=== PATIENT | female | born 1945 | race Caucasian/White ===

== ENCOUNTER 2018-11-26 14:56 | Inpatient (IN) | payer MEDICARE ==
[~2018-11-26 14:56] MED LIST: ISOVUE-370 76%-LOCM 1 ML ONE
[2018-11-26] MEDS ORDERED: Albuterol Sulfate 2.5 mg/0.5 ml Neb ONE ×4 (15:18→16:51)
[2018-11-26 15:24] LABS: #Eosinphils 0.1 thou/uL (0.0-0.7); #Lymphocytes 0.9 thou/uL (1.20-3.40); #Monocytes 0.9 thou/uL (0.11-0.59); #Neutrophils 6.9 thou/uL (1.40-6.50); %Basophils 0.2 % (0.0-1.0); %Eosinophils 1.2 % (0.0-10.0); %Lymphocytes 10.4 % (21.0-51.0); %Monocytes 10.2 % (0.0-10.0); %Neutrophils 78.1 % (42.0-75.0); Hemoglobin 14.3 g/dL (12.0-16.0); Mean Corpuscular HGB CONC 31.8 g/dL (32.0-36.0); Mean Corpuscular Volume 97.4 fL (78.0-98.0); Mean Platelet Volume 6.3 fL (7.4-10.4); Platelet Count 307 thou/uL (130-400); RBC Distribution Width 12.5 % (11.5-14.5); Red Blood Cell (RBC) Count 4.62 mill/uL (4.20-5.40); White Blood Cell (WBC) Count 8.9 thou/uL (4.8-10.8)
[2018-11-26] MEDS ORDERED: methylPREDNISolone Sod Succ/PF 125 MG/2 ML VIAL ONE (15:25)
[2018-11-26] MEDS ORDERED: Magnesium 2 GM/50 ML BAG (IN WATER) ONE (15:25)
[2018-11-26] MEDS ORDERED: cefTRIAXone\\ROCEPHIN 1 GM VIAL ONE (15:25)
--- NOTE | 2018-11-26 15:42 | RAD ---
CHEST 1 VIEW: HISTORY: Cough. COMPARISON: 08/29/2015. FINDINGS: Cardiac silhouette is magnified by projection. Pulmonary vasculature is upper limits of normal. Cecilia gs remain hyperinflated. Calcified granulomata are consistent with healed granulomatous disease. No lobar consolidation or evidence of pneumothorax. Postoperative changes right shoulder. IMPRESSION: Pulmonary hyperinflation and other chronic-type findings appear stable. No active cardiopulmonary ab normalities are demonstrated. POS: [facility]
[2018-11-26 15:46] LABS: ALT (SGPT) 13 U/L (8-55); AST (SGOT) 13 U/L (5-34); Albumin 3.9 g/dL (3.4-4.8); Alkaline Phosphatase 70 U/L (40-150); Anion Gap 15 mmol/L (10-20); BUN (Urea Nitrogen) 7 mg/dL (9.8-20.1); Bilirubin, Total 0.2 mg/dL (0.2-1.2); Calc. Creatinine Clearance 0 mL/min (70-130); Calcium 8.8 mg/dL (7.8-10.44); Carbon Dioxide 21 mmol/L (23-31); Chloride 107 mmol/L (98-107); Estimated GFR-MDRD 64; Globulin 3.2 g/dL (2.4-3.5); Glucose 189 mg/dL (83-110); Potassium 3.8 mmol/L (3.5-5.1); Protein, Total 7.1 g/dL (6.0-8.3); Sodium 139 mmol/L (136-145)
--- NOTE | 2018-11-26 16:39 | CT ---
CT ARTERIOGRAM CHEST WITH IV CONTRAST AND 3D MIP IMAGIN11/26/18 HISTORY: Chest pain. Dyspnea. Cough. FINDINGS: There is good contrast opacification of the pulmonary arteries and thoracic aorta with normal branchi ng of the great vessels. Lungs are well inflated. Densely calcified granuloma is present within the l ingula of the left upper lobe. No pleural fluid, pneumothorax or mediastinal adenopathy. Scattered no nspecific lymph nodes are apparent. IMPRESSION: No CT evidence of pulmonary embolus. POS: [facility]
[2018-11-26 17:17] LABS: Bilirubin Negative (Negative); Blood, Urine Negative (Negative); Clarity CLEAR (Clear); Glucose, Urine (Dipstick) Negative (Negative); Leukocyte Negative (Negative); Nitrite Negative (Negative); Protein, Urine (Dipstick) Negative (Neg-Trace); Urobilinogen 0.2 mg/dL (0.2-1.0)
[2018-11-26] MEDS ORDERED: Lorazepam 2 MG/ML VIAL ONE (17:46)
[2018-11-26 18:42] LABS: Troponin I 0.062 ng/mL (< 0.028)
[2018-11-26] MEDS ORDERED: Ondansetron ODT 4 MG TAB SL PRN (19:36)
[2018-11-26] MEDS ORDERED: Acetaminophen 325 MG TAB PO PRN (19:36)
[2018-11-26] MEDS ORDERED: Ondansetron PF 4 MG/2 ML Vial IVP PRN (19:36)
[2018-11-26 20:01] VITALS: BMI 24.7
[2018-11-26 21:36] LABS: Troponin I 0.097 ng/mL (< 0.028)
--- NOTE | 2018-11-27 00:24 | HP ---
PRIMARY CARE PHYSICIAN: Dallas Galdamez MD. CHIEF COMPLAINT: Shortness of breath. HISTORY OF PRESENT ILLNESS: This is a 73-year-old white female with a known history of COPD along with mild diastolic congestive heart failure. She has not had too many problems with it until her in March of last year. She is now on 2.5 L of oxygen at home. At that time, she started smoking after having quit for quite sometime. She has had worsened breathing problems since then and then over the last week she has had significant cough, wheezing, and shortness of breath. She went to see Dr. Galdamez about a week ago, took a course of azithromycin and steroids, finished those yesterday, but for the last 2 days she has had severe worsening of her symptoms in spite of the medicines and so she came in to the hospital today. The patient was found to be in severe respiratory distress. She was placed on BiPAP, given nebulizer treatments. She already had a couple of nebulizers at home as well. She initially had some significant improvement in her shortness of breath, has started to get worse again just now. She has also had some sinus tachycardia since now, up in the 150s and a lot of anxiety with a BiPAP mask on over her, currently giving her Ativan to see if we can help her calm down. She is oxygenating well now on the BiPAP mask. PAST MEDICAL HISTORY: 1. COPD, on home oxygen 2.5 L at baseline. 2. Diastolic congestive heart failure, never with any significant exacerbation. 3. Hypertension. 4. Hyperlipidemia. 5. Chronic back pain. 6. Hyponatremia, previously on hydrochlorothiazide. 7. Left lower extremity clot a few years ago that resolved on its own, not on any blood thinners. PAST SURGICAL HISTORY: 1. Appendectomy. 2. Cholecystectomy. 3. Hysterectomy. 4. Right hand surgery. SOCIAL HISTORY: The patient is . She is currently smoking one pack per day. No alcohol or illicit drug use. She lives at home with her daughter and son-in-law. Her daughter, Lupe Borrego, is her medical power of city attorney. ALLERGIES: NO KNOWN DRUG ALLERGIES. CURRENT MEDICATIONS: 1. Metoprolol succinate 25 mg twice a day. 2. Isosorbide mononitrate 30 mg daily. 3. Oxybutynin 5 mg twice a day. 4. Potassium chloride 20 mEq daily. 5. Lisinopril 10 mg daily. 6. Furosemide 40 mg daily. 7. Pravastatin 80 mg daily. REVIEW OF SYSTEMS: CONSTITUTIONAL: No fevers, no chills. EYES: No double vision or blurred vision. ENT: She has had some congestion. No sore throat. CARDIOVASCULAR: No chest pain. No palpitations or racing heart. PULMONARY: See HPI. Cough is productive of minimal white sputum. GASTROINTESTINAL: No abdominal pain. No nausea or vomiting. No diarrhea or constipation. GENITOURINARY: No dysuria or hematuria. MUSCULOSKELETAL: No muscle aches or joint pain. SKIN: No rashes or lesions she has noted. NEUROLOGIC: No numbness, tingling, or focal weakness. PHYSICAL EXAMINATION: VITAL SIGNS: Blood pressure 138/91, pulse 150, respirations 20 on BiPAP, saturating 100%, and temperature 99.5. GENERAL: This is a well-developed, well-nourished white female, who appears her stated age. She was in [id number] respiratory distress, on BiPAP currently. HEENT: Pupils equal, round, and reactive to light. Oropharynx appears dry underneath the BiPAP mask. NECK: Supple. No lymphadenopathy. No thyroid nodules or enlargement. HEART: Regular rhythm, but tachycardic with no murmurs. LUNGS: She has wheezes and tight breath sounds bilaterally. ABDOMEN: Soft, obese, nontender to palpation. Normoactive bowel sounds. No hepatosplenomegaly or other masses. EXTREMITIES: No clubbing, cyanosis, or edema. SKIN: No rashes or lesions noted. NEUROLOGIC: She has intact strength and sensation in all extremities. No facial droop. PSYCHIATRIC: She is alert and oriented x3. She is very anxious, so she feels like the mask is making it hard for her to breathe. Currently giving her 1 mg of Ativan. LABORATORY DATA: CBC within normal limits. Complete metabolic panel is notable only for carbon dioxide of 21, BUN of 7, and glucose of 189. Lactic acid was normal. Troponin was normal. Urinalysis was negative for infection. Chest x-ray, I did review the chest x-ray done in the emergency room along with the radiologist's report. It shows pulmonary hyperinflation, chronic changes with no infiltrates, no cardiomegaly. CTA of the chest shows no evidence of pulmonary embolism. No evidence of pneumonia or congestion. EKG, I did review the EKG done in the emergency room. It shows sinus tachycardia originally in the 130s, no ST-segment changes. ASSESSMENT: 1. Severe chronic obstructive pulmonary disease exacerbation; currently on BiPAP; getting nebs, steroids, and antibiotics; received Levaquin and Rocephin in the emergency room. We can continue the Levaquin in the hospital. We will put patient in the IMCU and consult Pulmonology to assist with care. If patient declines further then she may eventually end up needing intubation, though at this time she is doing okay. I did talk to her about this and she is okay with intubation if it is needed. 2. Acute on chronic hypoxic respiratory failure. 3. Diastolic congestive heart failure, not currently in exacerbation. She actually appeared dry when she came in, then she got 2 L of fluid in the emergency room. This did not help her tachycardia, so I suspect it is not due to volume depletion. We will monitor her fluid status closely. 4. Sinus tachycardia. The patient does not have a PE or any evidence of pneumonia. This is most likely related to anxiety and from difficulty breathing. We will give her some Ativan and see if she tolerates the BiPAP mask better with that. 5. Hypertension. We will resume patient's home blood pressure medications. 6. Hyperlipidemia. We will resume the patient's statin. 7. Gastrointestinal prophylaxis. We will put the patient on Pepcid twice a day. 8. Deep venous thrombosis prophylaxis. We will put the patient on Lovenox and SCDs. 9. Code status. I discussed this with the patient. She is a full code. Should she be incapacitated, her daughter would be her medical decision maker. Her daughter's name is Lupe Borrego. Job ID: [id number]
[2018-11-27] MEDS ORDERED: hydrALAZINE 20 MG/ML VIAL SLOW IVP PRN (01:05)
[2018-11-27] MEDS ORDERED: Lorazepam 2 MG/ML VIAL SLOW IVP PRN (01:05)
[2018-11-27] MEDS ORDERED: Ondansetron ODT 4 MG TAB PO PRN (01:05)
[2018-11-27] MEDS ORDERED: cloNIDine 0.1 MG TAB PO PRN (01:05)
[2018-11-27] MEDS ORDERED: Ondansetron PF 4 MG/2 ML Vial IVP PRN (01:05)
[2018-11-27] MEDS ORDERED: Acetaminophen 650 MG Suppository PR PRN (01:05)
[2018-11-27] MEDS ORDERED: Acetaminophen 325 MG TAB PO PRN (01:05)
[2018-11-27] MEDS ORDERED: Famotidine 20 MG TAB PO SCH (01:30)
[2018-11-27] MEDS ORDERED: Metoprolol Tartrate 25 MG TAB PO SCH (01:30)
[2018-11-27] MEDS ORDERED: Atorvastatin Calcium 20 MG TAB PO SCH (01:30)
[2018-11-27] MEDS: methylPREDNISolone Sod Succ 40 MG VIAL IVP SCH ×4 (01:55→21:22)
[2018-11-27 05:05] LABS: #Lymphocytes 0.5 thou/uL (1.20-3.40); #Monocytes 0.1 thou/uL (0.11-0.59); #Neutrophils 4.2 thou/uL (1.40-6.50); %Eosinophils 0.4 % (0.0-10.0); %Lymphocytes 10.6 % (21.0-51.0); %Monocytes 2.9 % (0.0-10.0); Hemoglobin 12.7 g/dL (12.0-16.0); Mean Corpuscular HGB CONC 32.1 g/dL (32.0-36.0); Mean Corpuscular Hemoglobin 31.5 pg (27.0-31.0); Mean Corpuscular Volume 98.1 fL (78.0-98.0); Mean Platelet Volume 6.3 fL (7.4-10.4); Platelet Count 275 thou/uL (130-400); RBC Distribution Width 12.4 % (11.5-14.5); Red Blood Cell (RBC) Count 4.01 mill/uL (4.20-5.40); White Blood Cell (WBC) Count 4.9 thou/uL (4.8-10.8)
[2018-11-27 05:24] LABS: Anion Gap 12 mmol/L (10-20); BUN (Urea Nitrogen) 7 mg/dL (9.8-20.1); Calc. Creatinine Clearance 67 mL/min (70-130); Calcium 8.2 mg/dL (7.8-10.44); Carbon Dioxide 22 mmol/L (23-31); Chloride 110 mmol/L (98-107); Estimated GFR-MDRD 74; Glucose 156 mg/dL (83-110); Potassium 4.5 mmol/L (3.5-5.1); Sodium 139 mmol/L (136-145)
[2018-11-27] MEDS: Metoprolol Tartrate 25 MG TAB PO SCH ×2 (09:04→21:23)
[2018-11-27] MEDS: Furosemide 40 MG TAB PO SCH (09:04)
[2018-11-27] MEDS: Potassium Chloride 20 MEQ TAB PO SCH (09:04)
[2018-11-27] MEDS: Famotidine 20 MG TAB PO SCH ×2 (09:04→21:23)
[2018-11-27] MEDS: Lisinopril 10 MG TAB PO SCH (09:05)
[2018-11-27] MEDS: Enoxaparin Sodium 40 MG/0.4 ML SYRINGE SC SCH (09:05)
--- NOTE | 2018-11-27 11:33 | CON ---
DATE OF CONSULTATION: CONSULTING PHYSICIAN: Hospitalist group. REASON FOR CONSULTATION: COPD exacerbation. HISTORY OF PRESENT ILLNESS: The patient is a 73-year-old female, who presented to the hospital with 3 to 4 days of increasing cough and shortness of breath. She had seen her primary care doctor twice and prescribed some antibiotics and steroids, but failed to get better. When she came in yesterday, she was so short of breath that she had to have BiPAP put on, which she wore last night. Today, she feels much better. She has been able to come off the BiPAP this morning without incident. PAST MEDICAL HISTORY: 1. COPD, requiring oxygen. 2. Diastolic congestive heart failure. 3. Hypertension. 4. Hyperlipidemia. 5. Chronic back pain. 6. Hyponatremia. 7. Left lower extremity clot. PAST SURGICAL HISTORY: 1. Appendectomy. 2. Cholecystectomy. 3. Hysterectomy. 4. Right hand surgery. SOCIAL HISTORY: She is a one [id number] smoker. She has smoked essentially since age 22, but did quit for about a year in early 70s. She does not consume alcohol. She lives with daughter. She is . She is able to perform all of her activities of daily living when she is feeling well. ALLERGIES: NONE. MEDICATIONS: Prior to admission; 1. Metoprolol 25 mg twice daily. 2. Isosorbide mononitrate 30 mg daily. 3. Oxybutynin 5 mg twice daily. 4. Potassium chloride 20 mEq daily. 5. Lisinopril 10 mg daily. 6. Furosemide 40 mg daily. 7. Pravastatin 80 mg daily. 8. ProAir metered-dose inhaler two puffs every 6 hours as needed. 9. Albuterol nebs as needed. 10. She occasionally uses Symbicort. REVIEW OF SYSTEMS: She denies fever or chills. She has had a cough. No chest pain. No hemoptysis, melena, hematochezia, hematuria, or dysuria. PHYSICAL EXAMINATION: VITAL SIGNS: Temperature 98.0, pulse 78, respirations 16, O2 saturation 100%, and blood pressure 129/71. GENERAL: She is awake, alert, and in no acute distress. HEENT: Pupils are reactive. Sclerae anicteric. Oropharynx clear. NECK: No adenopathy, JVD, or bruits. LUNGS: She has late expiratory wheezes best heard at the bases posteriorly. CARDIOVASCULAR: S1 and S2 regular without audible murmur. ABDOMEN: Soft, nontender, and nondistended. No hepatomegaly. EXTREMITIES: No clubbing, cyanosis, or edema. NEUROLOGIC: Shows no focal deficits. SKIN: Shows no lesions. LABORATORY DATA: White blood cell count 4.9, hematocrit 39.4, and platelet count 275. Sodium 139, potassium 4.5, chloride 110, CO2 of 22, BUN 7, creatinine 0.7, glucose 156. Her chest x-ray shows hyperinflated lungs, prominent alise. Pulmonary angiogram demonstrated no evidence of pulmonary embolism. No evidence of mass. She has calcified granuloma in the lingula. ASSESSMENT: 1. Chronic obstructive pulmonary disease exacerbation. 2. Acute hypoxic and hypercapnic respiratory failure, requiring mechanical ventilation. 3. Tobacco abuse. PLAN: The patient has been weaned from mechanical ventilation. Hopefully, she will not need that again. I have reviewed the orders and agreed with steroids. Scheduled nebulization treatments and antibiotics. If she is able to stay off the BiPAP, then she could be transferred to the medical floor later this afternoon. She has been told to stop smoking. She is currently immunized against influenza and pneumonia. I am not sure whether she has had Pneumovax and Prevnar 13. Job ID: [id number]
[2018-11-27] MEDS ORDERED: Cyclobenzaprine 10 MG TAB PO PRN (14:07)
[2018-11-27] MEDS: Acetaminophen 325 MG TAB PO SCH ×2 (16:50→21:22)
[2018-11-27] MEDS: Benzonatate 100 MG CAP PO PRN (16:56)
[2018-11-27] MEDS: guaiFENesin ER 600 MG TAB PO SCH (21:23)
[2018-11-27] MEDS: Atorvastatin Calcium 20 MG TAB PO SCH (21:23)
--- NOTE | 2018-11-27 23:00 | PDOC.PN ---
- Subjective Encounter Start Date: 11/27/18 Encounter Start Time: 10:30 Patient seen and examined for Resp failure. SOB improvng. Intractable coughing. No new complaints. No overnight events - Objective Resuscitation Status - Order Detail: 11/26/18 17:55 Resuscitation Status Routine Resuscitation Status: FULL: Full Resuscitation Discussed with: Patient MAR Reviewed: Yes Vital Signs & Weight: Vital Signs (12 hours) Temp Pulse Pulse Pulse Resp BP BP 11/27/18 20:30 11/27/18 20:00 98.1 F 11/27/18 18:53 112 H 24 H 11/27/18 15:25 99.4 F 11/27/18 14:22 109 H 101 H 106/56 L 106/71 11/27/18 13:12 11/27/18 13:10 94 16 11/27/18 11:49 98.8 F Pulse Ox Pulse Ox Pulse Ox 11/27/18 20:30 98 11/27/18 20:00 11/27/18 18:53 98 11/27/18 15:25 11/27/18 14:22 99 96 11/27/18 13:12 99 11/27/18 13:10 99 11/27/18 11:49 Weight Weight 140 lb Most Recent Monitor Data Heart Rate from ECG 96 NIBP 118/77 NIBP BP-Mean 90 Respiration from ECG 26 SpO2 98 I&O: 11/26/18 11/27/18 11/28/18 06:59 06:59 06:59 Intake Total 110 480 Balance 110 480 Result Diagrams: 11/27/18 04:46 11/27/18 04:46 EKG Reviewed by me: Yes (Tele SR) Phys Exam - Physical Examination Constitutional: NAD Respiratory: no rales, wheezing present (scat) B/L rhonchi Cardiovascular: RRR, no rub Gastrointestinal: soft, non-tender, positive bowel sounds Musculoskeletal: no edema Neurological: moves all 4 limbs Dx/Plan (1) Acute and chronic respiratory failure with hypoxia Code(s): J96.21 - ACUTE AND CHRONIC RESPIRATORY FAILURE WITH HYPOXIA Status: Acute Comment: due to COPD Exacerbation (2) Tobacco dependence Code(s): F17.200 - NICOTINE DEPENDENCE, UNSPECIFIED, UNCOMPLICATED Status: Chronic (3) HTN (hypertension) Code(s): I10 - ESSENTIAL (PRIMARY) HYPERTENSION Status: Chronic (4) HLD (hyperlipidemia) Code(s): E78.5 - HYPERLIPIDEMIA, UNSPECIFIED Status: Chronic (5) Elevated troponin Code(s): R74.8 - ABNORMAL LEVELS OF OTHER SERUM ENZYMES Status: Chronic (6) CKD (chronic kidney disease) stage 2, GFR 60-89 ml/min Code(s): N18.2 - CHRONIC KIDNEY DISEASE, STAGE 2 (MILD) Status: Chronic - Plan cont current plan of care, continue antibiotics, DVT proph w/SCDs Cont steroids/Nebs -: Add Mucinex -: AM labs -: Cont current meds as below -: BMP in AM Review of Systems - Review of Systems Respiratory: Cough, Sputum (thick - scanty) Cardiovascular: negative: chest pain, palpitations, orthopnea, paroxysmal nocturnal dyspnea, edema, light headedness, other - Medications/Allergies Allergies/Adverse Reactions: Allergies Allergy/AdvReac Type Severity Reaction Status Date / Time No Known Drug Allergies Allergy Verified 11/26/18 20:02 Medications: Current Medications Acetaminophen (Tylenol) 650 mg TN Q4H PRN PRN Reason: Headache/Fever/Mild Pain (1-3) Acetaminophen (Tylenol) 650 mg PO TID [facility] Last Admin: 11/27/18 21:22 Dose: 650 mg Albuterol/Ipratropium (Duoneb) 3 ml NEB [id number] [facility] Last Admin: 11/27/18 18:53 Dose: 3 ml Albuterol/Ipratropium (Duoneb) 3 ml NEB Q0OB-BT PRN PRN Reason: SOB &/or Wheezing Atorvastatin Calcium (Lipitor) 20 mg PO HS [facility] Last Admin: 11/27/18 21:23 Dose: 20 mg Benzonatate (Tessalon) 100 mg PO TID PRN PRN Reason: Cough Last Admin: 11/27/18 16:56 Dose: 100 mg Clonidine (Catapres) 0.1 mg PO Q4H PRN PRN Reason: Severe Hypertension Cyclobenzaprine HCl (Flexeril) 5 mg PO TID PRN PRN Reason: Muscle Spasm Stop: 11/29/18 14:08 Enoxaparin Sodium (Lovenox) 40 mg SC 0900 [facility] Last Admin: 11/27/18 09:05 Dose: 40 mg Famotidine (Pepcid) 20 mg PO BID [facility] Last Admin: 11/27/18 21:23 Dose: 20 mg Furosemide (Lasix) 40 mg PO QAM [facility] Last Admin: 11/27/18 09:04 Dose: 40 mg Guaifenesin (Mucinex) 600 mg PO Q12HR [facility] Last Admin: 11/27/18 21:23 Dose: 600 mg Hydralazine HCl (Apresoline) 10 mg SLOW IVP Q4H PRN PRN Reason: Severe Hypertension Levofloxacin 750 mg/ Device 150 mls @ 100 mls/hr IVPB Q24HR [facility] Last Admin: 11/27/18 16:49 Dose: 150 mls Isosorbide Mononitrate (Imdur Er) 30 mg PO DAILY [facility] Last Admin: 11/27/18 09:03 Dose: 30 mg Lisinopril (Zestril) 10 mg PO DAILY [facility] Last Admin: 11/27/18 09:05 Dose: 10 mg Lorazepam (Ativan) 1 mg SLOW IVP Q4H PRN PRN Reason: Anxiety/Agitation Methylprednisolone Sodium Succinate (Solu-Medrol) 40 mg IVP 0200,0800,1400, 2000 [facility] Last Admin: 11/27/18 21:22 Dose: 40 mg Metoprolol Tartrate (Lopressor) 25 mg PO BID [facility] Last Admin: 11/27/18 21:23 Dose: 25 mg Ondansetron HCl (Zofran Odt) 4 mg PO Q6H PRN PRN Reason: Nausea/Vomiting Ondansetron HCl (Zofran) 4 mg IVP Q6H PRN PRN Reason: Nausea/Vomiting Potassium Chloride (K-Dur) 20 meq PO DAILY [facility] Last Admin: 11/27/18 09:04 Dose: 20 meq Saccharomyces Boulardii (Florastor) 250 mg PO DAILY [facility] Senna/Docusate Sodium (Senokot S) 2 tab PO BID PRN PRN Reason: Constipation Sodium Chloride (Flush - Normal Saline) 10 ml IVF Q12HR [facility] Last Admin: 11/27/18 21:23 Dose: 10 ml Sodium Chloride (Flush - Normal Saline) 10 ml IVF PRN PRN PRN Reason: Saline Flush
[2018-11-28] MEDS: methylPREDNISolone Sod Succ 40 MG VIAL IVP SCH ×4 (02:51→20:31)
[2018-11-28 05:12] LABS: Anion Gap 12 mmol/L (10-20); BUN (Urea Nitrogen) 15 mg/dL (9.8-20.1); Calc. Creatinine Clearance 65 mL/min (70-130); Calcium 8.3 mg/dL (7.8-10.44); Carbon Dioxide 24 mmol/L (23-31); Chloride 108 mmol/L (98-107); Estimated GFR-MDRD 71; Glucose 139 mg/dL (83-110); Magnesium 2.2 mg/dL (1.6-2.6); Potassium 4.1 mmol/L (3.5-5.1); Sodium 140 mmol/L (136-145)
[2018-11-28] MEDS: Benzonatate 100 MG CAP PO PRN (05:26)
--- NOTE | 2018-11-28 09:00 | PRG ---
DATE OF SERVICE: 11/28/2018 SUBJECTIVE: The patient is feeling better. She has not used BiPAP last night. OBJECTIVE: VITAL SIGNS: Temperature is 98.7, pulse 77, blood pressure 127/67, O2 saturation 100%. HEENT: Unremarkable. NECK: No adenopathy or JVD. LUNGS: Expiratory wheezing. CARDIAC: S1 and S2 regular. ABDOMEN: Soft. EXTREMITIES: No edema. LABORATORY DATA: Sodium 140, potassium 4.1, chloride 108, CO2 of 24, BUN 15, creatinine 0.8, glucose 139. ASSESSMENT: Chronic obstructive pulmonary disease with exacerbation. PLAN: She no longer needs the BiPAP. Based on that, I will transfer her to the floor. She will continue steroids, nebs, and antibiotics. I would anticipate her needing to be in the hospital for couple more days. I would like her to have scheduled nebs every 4 hours. Job ID: [id number]
[2018-11-28] MEDS: Saccharomyces boulardii 250 MG CAP PO SCH (09:13)
[2018-11-28] MEDS: Acetaminophen 325 MG TAB PO SCH ×3 (09:13→20:32)
[2018-11-28] MEDS: Famotidine 20 MG TAB PO SCH ×2 (09:13→20:33)
[2018-11-28] MEDS: guaiFENesin ER 600 MG TAB PO SCH ×2 (09:13→20:33)
[2018-11-28] MEDS: Furosemide 40 MG TAB PO SCH (09:13)
[2018-11-28] MEDS: Metoprolol Tartrate 25 MG TAB PO SCH ×2 (09:13→20:32)
[2018-11-28] MEDS: Enoxaparin Sodium 40 MG/0.4 ML SYRINGE SC SCH (09:13)
[2018-11-28] MEDS: Lisinopril 10 MG TAB PO SCH (09:14)
[2018-11-28] MEDS: Potassium Chloride 20 MEQ TAB PO SCH (09:14)
[2018-11-28] MEDS: Atorvastatin Calcium 20 MG TAB PO SCH (20:33)
--- NOTE | 2018-11-28 22:00 | PDOC.PN ---
- Subjective Encounter Start Date: 11/28/18 Encounter Start Time: 10:15 Patient seen and examined for COPD flare. SOB improving. Coughing - dry. No new complaints. No overnight events - Objective Resuscitation Status - Order Detail: 11/26/18 17:55 Resuscitation Status Routine Resuscitation Status: FULL: Full Resuscitation Discussed with: Patient MAR Reviewed: Yes Vital Signs & Weight: Vital Signs (12 hours) Temp Pulse Pulse Pulse Resp BP BP 11/28/18 19:45 103 H 26 H 11/28/18 15:13 98.7 F 11/28/18 14:07 82 24 H 11/28/18 11:06 99.2 F 11/28/18 10:28 97 20 11/28/18 10:05 110 H 101 H 143/78 H 136/55 L Pulse Ox Pulse Ox Pulse Ox 11/28/18 19:45 96 11/28/18 15:13 11/28/18 14:07 96 11/28/18 11:06 11/28/18 10:28 100 11/28/18 10:05 99 99 Weight Weight 140 lb Most Recent Monitor Data Heart Rate from ECG 82 NIBP 123/68 NIBP BP-Mean 86 Respiration from ECG 28 SpO2 99 I&O: 11/27/18 11/28/18 11/29/18 06:59 06:59 06:59 Intake Total 110 790 570 Output Total 450 Balance 110 340 570 Result Diagrams: 11/27/18 04:46 11/28/18 04:02 EKG Reviewed by me: Yes (Tele ST) Phys Exam - Physical Examination Constitutional: NAD Respiratory: no rales, wheezing present (scat) B/L rhonchi Cardiovascular: RRR, no rub Gastrointestinal: soft, non-tender, positive bowel sounds Musculoskeletal: no edema Neurological: moves all 4 limbs Dx/Plan (1) Acute and chronic respiratory failure with hypoxia Code(s): J96.21 - ACUTE AND CHRONIC RESPIRATORY FAILURE WITH HYPOXIA Status: Acute Comment: due to COPD Exacerbation (2) Tobacco dependence Code(s): F17.200 - NICOTINE DEPENDENCE, UNSPECIFIED, UNCOMPLICATED Status: Chronic (3) HTN (hypertension) Code(s): I10 - ESSENTIAL (PRIMARY) HYPERTENSION Status: Chronic (4) HLD (hyperlipidemia) Code(s): E78.5 - HYPERLIPIDEMIA, UNSPECIFIED Status: Chronic (5) Elevated troponin Code(s): R74.8 - ABNORMAL LEVELS OF OTHER SERUM ENZYMES Status: Chronic (6) CKD (chronic kidney disease) stage 2, GFR 60-89 ml/min Code(s): N18.2 - CHRONIC KIDNEY DISEASE, STAGE 2 (MILD) Status: Chronic - Plan cont current plan of care, continue antibiotics, respiratory therapy, DVT proph w/lovenox, DVT proph w/SCDs Cont supportive care -: AM labs -: Cont current meds as below -: Await Medical bed Review of Systems - Review of Systems Cardiovascular: negative: chest pain, palpitations, orthopnea, paroxysmal nocturnal dyspnea, edema, light headedness, other Gastrointestinal: negative: Nausea, Vomiting, Abdominal Pain, Diarrhea, Constipation, Melena, Hematochezia, Other - Medications/Allergies Allergies/Adverse Reactions: Allergies Allergy/AdvReac Type Severity Reaction Status Date / Time No Known Drug Allergies Allergy Verified 11/26/18 20:02 Medications: Current Medications Acetaminophen (Tylenol) 650 mg KS Q4H PRN PRN Reason: Headache/Fever/Mild Pain (1-3) Acetaminophen (Tylenol) 650 mg PO TID [facility] Last Admin: 11/28/18 20:32 Dose: 650 mg Albuterol/Ipratropium (Duoneb) 3 ml NEB [id number] [facility] Last Admin: 11/28/18 19:45 Dose: 3 ml Atorvastatin Calcium (Lipitor) 20 mg PO HS [facility] Last Admin: 11/28/18 20:33 Dose: 20 mg Benzonatate (Tessalon) 100 mg PO TID PRN PRN Reason: Cough Last Admin: 11/28/18 05:26 Dose: 100 mg Clonidine (Catapres) 0.1 mg PO Q4H PRN PRN Reason: Severe Hypertension Cyclobenzaprine HCl (Flexeril) 5 mg PO TID PRN PRN Reason: Muscle Spasm Stop: 11/29/18 14:08 Enoxaparin Sodium (Lovenox) 40 mg SC 0900 [facility] Last Admin: 11/28/18 09:13 Dose: 40 mg Famotidine (Pepcid) 20 mg PO BID [facility] Last Admin: 11/28/18 20:33 Dose: 20 mg Furosemide (Lasix) 40 mg PO QAM [facility] Last Admin: 11/28/18 09:13 Dose: 40 mg Guaifenesin (Mucinex) 600 mg PO Q12HR [facility] Last Admin: 11/28/18 20:33 Dose: 600 mg Hydralazine HCl (Apresoline) 10 mg SLOW IVP Q4H PRN PRN Reason: Severe Hypertension Levofloxacin 750 mg/ Device 150 mls @ 100 mls/hr IVPB Q24HR [facility] Last Admin: 11/28/18 15:23 Dose: Not Given Isosorbide Mononitrate (Imdur Er) 30 mg PO DAILY [facility] Last Admin: 11/28/18 09:13 Dose: 30 mg Lisinopril (Zestril) 10 mg PO DAILY [facility] Last Admin: 11/28/18 09:14 Dose: 10 mg Lorazepam (Ativan) 1 mg SLOW IVP Q4H PRN PRN Reason: Anxiety/Agitation Methylprednisolone Sodium Succinate (Solu-Medrol) 40 mg IVP 0200,0800,1400, 2000 [facility] Last Admin: 11/28/18 20:31 Dose: 40 mg Metoprolol Tartrate (Lopressor) 25 mg PO BID [facility] Last Admin: 11/28/18 20:32 Dose: 25 mg Ondansetron HCl (Zofran Odt) 4 mg PO Q6H PRN PRN Reason: Nausea/Vomiting Ondansetron HCl (Zofran) 4 mg IVP Q6H PRN PRN Reason: Nausea/Vomiting Potassium Chloride (K-Dur) 20 meq PO DAILY [facility] Last Admin: 11/28/18 09:14 Dose: 20 meq Saccharomyces Boulardii (Florastor) 250 mg PO DAILY [facility] Last Admin: 11/28/18 09:13 Dose: 250 mg Senna/Docusate Sodium (Senokot S) 2 tab PO BID PRN PRN Reason: Constipation Sodium Chloride (Flush - Normal Saline) 10 ml IVF Q12HR [facility] Last Admin: 11/28/18 20:32 Dose: 10 ml Sodium Chloride (Flush - Normal Saline) 10 ml IVF PRN PRN PRN Reason: Saline Flush
[2018-11-29] MEDS: Benzonatate 100 MG CAP PO PRN ×2 (01:38→14:42)
[2018-11-29] MEDS: methylPREDNISolone Sod Succ 40 MG VIAL IVP SCH ×5 (01:38→20:17)
[2018-11-29 05:52] LABS: #Lymphocytes 0.5 thou/uL (1.20-3.40); #Monocytes 0.4 thou/uL (0.11-0.59); #Neutrophils 9.4 thou/uL (1.40-6.50); %Eosinophils 0.2 % (0.0-10.0); %Lymphocytes 4.7 % (21.0-51.0); %Monocytes 3.5 % (0.0-10.0); %Neutrophils 91.6 % (42.0-75.0); Hemoglobin 14.2 g/dL (12.0-16.0); Mean Corpuscular HGB CONC 32.7 g/dL (32.0-36.0); Mean Corpuscular Hemoglobin 31.7 pg (27.0-31.0); Mean Corpuscular Volume 96.9 fL (78.0-98.0); Mean Platelet Volume 6.6 fL (7.4-10.4); Platelet Count 301 thou/uL (130-400); RBC Distribution Width 12.6 % (11.5-14.5); Red Blood Cell (RBC) Count 4.48 mill/uL (4.20-5.40); White Blood Cell (WBC) Count 10.2 thou/uL (4.8-10.8)
[2018-11-29 06:15] LABS: Anion Gap 13 mmol/L (10-20); BUN (Urea Nitrogen) 17 mg/dL (9.8-20.1); Calc. Creatinine Clearance 62 mL/min (70-130); Calcium 8.9 mg/dL (7.8-10.44); Carbon Dioxide 28 mmol/L (23-31); Chloride 105 mmol/L (98-107); Estimated GFR-MDRD 67; Glucose 144 mg/dL (83-110); Potassium 4.4 mmol/L (3.5-5.1); Sodium 142 mmol/L (136-145)
[2018-11-29] MEDS: Lisinopril 10 MG TAB PO SCH (08:36)
[2018-11-29] MEDS: Potassium Chloride 20 MEQ TAB PO SCH (08:36)
[2018-11-29] MEDS: Saccharomyces boulardii 250 MG CAP PO SCH (08:37)
[2018-11-29] MEDS: Acetaminophen 325 MG TAB PO SCH ×3 (08:37→20:17)
[2018-11-29] MEDS: Metoprolol Tartrate 25 MG TAB PO SCH ×2 (08:37→20:18)
[2018-11-29] MEDS: Famotidine 20 MG TAB PO SCH ×2 (08:37→20:17)
[2018-11-29] MEDS: guaiFENesin ER 600 MG TAB PO SCH ×2 (08:37→20:17)
[2018-11-29] MEDS: Enoxaparin Sodium 40 MG/0.4 ML SYRINGE SC SCH (08:37)
[2018-11-29] MEDS: Furosemide 40 MG TAB PO SCH (08:37)
--- NOTE | 2018-11-29 09:08 | PRG ---
DATE OF SERVICE: 11/29/2018 SUBJECTIVE: The patient continues to feel short of breath. She has been able to get up and walk around the room some. OBJECTIVE: VITAL SIGNS: Temperature is 98.3, pulse 97, blood pressure 146/75, and O2 sat 96%. A 24-hour intake 870, output not quantitated. HEENT: Unremarkable. NECK: No JVD. LUNGS: She has bilateral soft end-expiratory wheeze. ABDOMEN: Soft, nontender. EXTREMITIES: No edema. LABORATORY DATA: White blood cell count 10.2, hematocrit 43.4, and platelet count 301. Sodium 142, potassium 4.4, BUN 17, creatinine 0.8, and glucose 144. ASSESSMENT: 1. Chronic obstructive pulmonary disease with exacerbation. 2. Status post hypercapnic respiratory failure. PLAN: Continue antibiotics, steroids, and nebulization treatments. We will cut the steroid dose in half. She is not ready to go home quite yet. Job ID: [id number]
[2018-11-29] MEDS: Cefdinir 300 MG CAP PO SCH (20:17)
[2018-11-29] MEDS: Doxycycline 100 MG CAP PO SCH (20:18)
[2018-11-29] MEDS: Atorvastatin Calcium 20 MG TAB PO SCH (20:18)
--- NOTE | 2018-11-29 21:31 | PDOC.PN ---
- Subjective Encounter Start Date: 11/29/18 Encounter Start Time: 11:00 Patient seen and examined for Resp failure. SOB improving. Cough +. No overnight events - Objective Resuscitation Status - Order Detail: 11/26/18 17:55 Resuscitation Status Routine Resuscitation Status: FULL: Full Resuscitation Discussed with: Patient JULIA Reviewed: Yes Vital Signs & Weight: Vital Signs (12 hours) Temp Pulse Resp BP Pulse Ox Pulse Ox Pulse Ox 11/29/18 20:05 98.0 F 85 18 119/73 98 11/29/18 19:38 88 20 95 11/29/18 16:00 98.0 F 88 20 153/87 H 97 11/29/18 14:10 100 20 11/29/18 13:41 88 L 95 11/29/18 12:32 98.2 F 83 20 131/77 96 11/29/18 11:04 110 H 16 Pulse Ox 11/29/18 20:05 11/29/18 19:38 11/29/18 16:00 11/29/18 14:10 11/29/18 13:41 91 L 11/29/18 12:32 11/29/18 11:04 Weight Weight 140 lb Most Recent Monitor Data Heart Rate from ECG 82 NIBP 123/68 NIBP BP-Mean 86 Respiration from ECG 28 SpO2 99 I&O: 11/28/18 11/29/18 11/30/18 06:59 06:59 06:59 Intake Total 790 870 600 Output Total 450 300 Balance 340 870 300 Result Diagrams: 11/29/18 05:06 11/29/18 05:06 Phys Exam - Physical Examination Constitutional: NAD Respiratory: no rales, wheezing present Scat rhonchi Cardiovascular: RRR, no rub Gastrointestinal: soft, non-tender, positive bowel sounds Musculoskeletal: no edema Neurological: moves all 4 limbs Dx/Plan (1) Acute and chronic respiratory failure with hypoxia Code(s): J96.21 - ACUTE AND CHRONIC RESPIRATORY FAILURE WITH HYPOXIA Status: Acute Comment: due to COPD Exacerbation (2) Tobacco dependence Code(s): F17.200 - NICOTINE DEPENDENCE, UNSPECIFIED, UNCOMPLICATED Status: Chronic (3) HTN (hypertension) Code(s): I10 - ESSENTIAL (PRIMARY) HYPERTENSION Status: Chronic (4) HLD (hyperlipidemia) Code(s): E78.5 - HYPERLIPIDEMIA, UNSPECIFIED Status: Chronic (5) Elevated troponin Code(s): R74.8 - ABNORMAL LEVELS OF OTHER SERUM ENZYMES Status: Chronic (6) CKD (chronic kidney disease) stage 2, GFR 60-89 ml/min Code(s): N18.2 - CHRONIC KIDNEY DISEASE, STAGE 2 (MILD) Status: Chronic - Plan cont current plan of care, continue antibiotics, respiratory therapy, out of bed /ambulate, DVT proph w/lovenox, DVT proph w/SCDs Patient has been refusing Levaquin - States that she had adverse reaction -: Start Omnicef with Doxy -: Cont IV Steroids -: Cont other meds as below Review of Systems - Review of Systems Respiratory: Cough, Dry, SOB with Excertion, Wheezing. negative: Shortness of Breath, Hemoptysis, Pleuritic Pain, Sputum Cardiovascular: negative: chest pain, palpitations, orthopnea, paroxysmal nocturnal dyspnea, edema, light headedness, other Gastrointestinal: negative: Nausea, Vomiting, Abdominal Pain, Diarrhea, Constipation, Melena, Hematochezia, Other - Medications/Allergies Allergies/Adverse Reactions: Allergies Allergy/AdvReac Type Severity Reaction Status Date / Time levofloxacin [From Levaquin] AdvReac Unknown Verified 11/29/18 15:03 Medications: Current Medications Acetaminophen (Tylenol) 650 mg [place] Q4H PRN PRN Reason: Headache/Fever/Mild Pain (1-3) Acetaminophen (Tylenol) 650 mg PO TID [facility] Last Admin: 11/29/18 20:17 Dose: 650 mg Albuterol/Ipratropium (Duoneb) 3 ml NEB [id number] [facility] Last Admin: 11/29/18 19:38 Dose: 3 ml Atorvastatin Calcium (Lipitor) 20 mg PO HS [facility] Last Admin: 11/29/18 20:18 Dose: 20 mg Benzonatate (Tessalon) 100 mg PO TID PRN PRN Reason: Cough Last Admin: 11/29/18 14:42 Dose: 100 mg Cefdinir (Omnicef) 300 mg PO BID [facility] Last Admin: 11/29/18 20:17 Dose: 300 mg Clonidine (Catapres) 0.1 mg PO Q4H PRN PRN Reason: Severe Hypertension Doxycycline Hyclate (Vibramycin) 100 mg PO BID [facility] Last Admin: 11/29/18 20:18 Dose: 100 mg Enoxaparin Sodium (Lovenox) 40 mg SC 0900 [facility] Last Admin: 11/29/18 08:37 Dose: 40 mg Famotidine (Pepcid) 20 mg PO BID [facility] Last Admin: 11/29/18 20:17 Dose: 20 mg Furosemide (Lasix) 40 mg PO QAM [facility] Last Admin: 11/29/18 08:37 Dose: 40 mg Guaifenesin (Mucinex) 600 mg PO Q12HR [facility] Last Admin: 11/29/18 20:17 Dose: 600 mg Hydralazine HCl (Apresoline) 10 mg SLOW IVP Q4H PRN PRN Reason: Severe Hypertension Isosorbide Mononitrate (Imdur Er) 30 mg PO DAILY [facility] Last Admin: 11/29/18 08:39 Dose: 30 mg Lisinopril (Zestril) 10 mg PO DAILY [facility] Last Admin: 11/29/18 08:36 Dose: 10 mg Lorazepam (Ativan) 1 mg SLOW IVP Q4H PRN PRN Reason: Anxiety/Agitation Methylprednisolone Sodium Succinate (Solu-Medrol) 20 mg IVP 0200,0800,1400, 2000 [facility] Last Admin: 11/29/18 20:17 Dose: 20 mg Metoprolol Tartrate (Lopressor) 25 mg PO BID [facility] Last Admin: 11/29/18 20:18 Dose: 25 mg Ondansetron HCl (Zofran Odt) 4 mg PO Q6H PRN PRN Reason: Nausea/Vomiting Ondansetron HCl (Zofran) 4 mg IVP Q6H PRN PRN Reason: Nausea/Vomiting Potassium Chloride (K-Dur) 20 meq PO DAILY [facility] Last Admin: 11/29/18 08:36 Dose: 20 meq Saccharomyces Boulardii (Florastor) 250 mg PO DAILY [facility] Last Admin: 11/29/18 08:37 Dose: 250 mg Senna/Docusate Sodium (Senokot S) 2 tab PO BID PRN PRN Reason: Constipation Sodium Chloride (Flush - Normal Saline) 10 ml IVF Q12HR [facility] Last Admin: 11/29/18 20:20 Dose: 10 ml Sodium Chloride (Flush - Normal Saline) 10 ml IVF PRN PRN PRN Reason: Saline Flush
[2018-11-30] MEDS ORDERED: Bacteriostatic Water 30 ML VIAL FS PRN (01:33)
[2018-11-30] MEDS: methylPREDNISolone Sod Succ 40 MG VIAL IVP SCH ×4 (02:19→20:04)
[2018-11-30] MEDS: Benzonatate 100 MG CAP PO PRN ×2 (04:27→20:11)
[2018-11-30] MEDS: Saccharomyces boulardii 250 MG CAP PO SCH (08:31)
[2018-11-30] MEDS: Doxycycline 100 MG CAP PO SCH ×2 (08:31→20:04)
[2018-11-30] MEDS: Furosemide 40 MG TAB PO SCH (08:31)
[2018-11-30] MEDS: guaiFENesin ER 600 MG TAB PO SCH ×2 (08:31→20:05)
[2018-11-30] MEDS: Lisinopril 10 MG TAB PO SCH (08:31)
[2018-11-30] MEDS: Potassium Chloride 20 MEQ TAB PO SCH (08:32)
[2018-11-30] MEDS: Famotidine 20 MG TAB PO SCH ×2 (08:32→20:04)
[2018-11-30] MEDS: Acetaminophen 325 MG TAB PO SCH ×3 (08:33→20:04)
[2018-11-30] MEDS: Cefdinir 300 MG CAP PO SCH ×2 (08:33→20:04)
[2018-11-30] MEDS: Enoxaparin Sodium 40 MG/0.4 ML SYRINGE SC SCH (08:33)
[2018-11-30] MEDS: Metoprolol Tartrate 25 MG TAB PO SCH ×2 (08:33→20:05)
[2018-11-30] MEDS: Senokot S 8.6-50 MG TAB PO PRN (08:44)
--- NOTE | 2018-11-30 11:29 | PDOC.PN ---
- Subjective Encounter Start Date: 11/30/18 Encounter Start Time: 10:30 Patient seen and examined for Resp failure. Intermittent coughing spells with scanty production. SOB +. No overnight events - Objective Resuscitation Status - Order Detail: 11/26/18 17:55 Resuscitation Status Routine Resuscitation Status: FULL: Full Resuscitation Discussed with: Patient MAR Reviewed: Yes Vital Signs & Weight: Vital Signs (12 hours) Temp Pulse Resp BP BP Pulse Ox 11/30/18 08:46 97 11/30/18 08:31 147/80 H 11/30/18 08:08 98.4 F 75 24 H 147/80 H 97 11/30/18 06:29 96 11/30/18 06:25 78 20 96 Weight Weight 140 lb Most Recent Monitor Data Heart Rate from ECG 82 NIBP 123/68 NIBP BP-Mean 86 Respiration from ECG 28 SpO2 99 I&O: 11/29/18 11/30/18 12/01/18 06:59 06:59 06:59 Intake Total 870 950 Output Total 300 Balance 870 650 Result Diagrams: 11/29/18 05:06 11/29/18 05:06 Phys Exam - Physical Examination Constitutional: NAD Respiratory: wheezing present Scat rhonchi Cardiovascular: RRR, no rub Gastrointestinal: soft, non-tender, positive bowel sounds Musculoskeletal: no edema Neurological: moves all 4 limbs Dx/Plan (1) Acute and chronic respiratory failure with hypoxia Code(s): J96.21 - ACUTE AND CHRONIC RESPIRATORY FAILURE WITH HYPOXIA Status: Acute Comment: due to COPD Exacerbation (2) Tobacco dependence Code(s): F17.200 - NICOTINE DEPENDENCE, UNSPECIFIED, UNCOMPLICATED Status: Chronic (3) HTN (hypertension) Code(s): I10 - ESSENTIAL (PRIMARY) HYPERTENSION Status: Chronic (4) HLD (hyperlipidemia) Code(s): E78.5 - HYPERLIPIDEMIA, UNSPECIFIED Status: Chronic (5) Elevated troponin Code(s): R74.8 - ABNORMAL LEVELS OF OTHER SERUM ENZYMES Status: Chronic (6) CKD (chronic kidney disease) stage 2, GFR 60-89 ml/min Code(s): N18.2 - CHRONIC KIDNEY DISEASE, STAGE 2 (MILD) Status: Chronic - Plan cont current plan of care, continue antibiotics, respiratory therapy, out of bed /ambulate, DVT proph w/SCDs Cont IV Steroids/Nebs -: Cont current meds as below Review of Systems - Review of Systems Cardiovascular: negative: chest pain, palpitations, orthopnea, paroxysmal nocturnal dyspnea, edema, light headedness, other Gastrointestinal: negative: Nausea, Vomiting, Abdominal Pain, Diarrhea, Constipation, Melena, Hematochezia, Other - Medications/Allergies Allergies/Adverse Reactions: Allergies Allergy/AdvReac Type Severity Reaction Status Date / Time levofloxacin [From Levaquin] AdvReac Unknown Verified 11/29/18 15:03 Medications: Current Medications Acetaminophen (Tylenol) 650 mg [place] Q4H PRN PRN Reason: Headache/Fever/Mild Pain (1-3) Last Admin: 11/30/18 04:34 Dose: 650 mg Acetaminophen (Tylenol) 650 mg PO TID [facility] Last Admin: 11/30/18 08:33 Dose: 650 mg Albuterol/Ipratropium (Duoneb) 3 ml NEB [id number] [facility] Last Admin: 11/30/18 06:25 Dose: 3 ml Atorvastatin Calcium (Lipitor) 20 mg PO HS [facility] Last Admin: 11/29/18 20:18 Dose: 20 mg Benzonatate (Tessalon) 100 mg PO TID PRN PRN Reason: Cough Last Admin: 11/30/18 04:27 Dose: 100 mg Cefdinir (Omnicef) 300 mg PO BID [facility] Last Admin: 11/30/18 08:33 Dose: 300 mg Clonidine (Catapres) 0.1 mg PO Q4H PRN PRN Reason: Severe Hypertension Doxycycline Hyclate (Vibramycin) 100 mg PO BID [facility] Last Admin: 11/30/18 08:31 Dose: 100 mg Enoxaparin Sodium (Lovenox) 40 mg SC 0900 [facility] Last Admin: 11/30/18 08:33 Dose: 40 mg Famotidine (Pepcid) 20 mg PO BID [facility] Last Admin: 11/30/18 08:32 Dose: 20 mg Furosemide (Lasix) 40 mg PO QAM [facility] Last Admin: 11/30/18 08:31 Dose: 40 mg Guaifenesin (Mucinex) 600 mg PO Q12HR [facility] Last Admin: 11/30/18 08:31 Dose: 600 mg Hydralazine HCl (Apresoline) 10 mg SLOW IVP Q4H PRN PRN Reason: Severe Hypertension Isosorbide Mononitrate (Imdur Er) 30 mg PO DAILY [facility] Last Admin: 11/30/18 08:33 Dose: 30 mg Lisinopril (Zestril) 10 mg PO DAILY [facility] Last Admin: 11/30/18 08:31 Dose: 10 mg Lorazepam (Ativan) 1 mg SLOW IVP Q4H PRN PRN Reason: Anxiety/Agitation Methylprednisolone Sodium Succinate (Solu-Medrol) 20 mg IVP 0200,0800,1400, 2000 [facility] Last Admin: 11/30/18 08:31 Dose: 20 mg Metoprolol Tartrate (Lopressor) 25 mg PO BID [facility] Last Admin: 11/30/18 08:33 Dose: 25 mg Ondansetron HCl (Zofran Odt) 4 mg PO Q6H PRN PRN Reason: Nausea/Vomiting Ondansetron HCl (Zofran) 4 mg IVP Q6H PRN PRN Reason: Nausea/Vomiting Potassium Chloride (K-Dur) 20 meq PO DAILY [facility] Last Admin: 11/30/18 08:32 Dose: 20 meq Saccharomyces Boulardii (Florastor) 250 mg PO DAILY [facility] Last Admin: 11/30/18 08:31 Dose: 250 mg Senna/Docusate Sodium (Senokot S) 2 tab PO BID PRN PRN Reason: Constipation Last Admin: 11/30/18 08:44 Dose: 2 tab Sodium Chloride (Flush - Normal Saline) 10 ml IVF Q12HR [facility] Last Admin: 11/30/18 08:34 Dose: 10 ml Sodium Chloride (Flush - Normal Saline) 10 ml IVF PRN PRN PRN Reason: Saline Flush Sterile Water (Bacteriostatic Water) 2 ml FS PRN PRN PRN Reason: RECONSTITUTION
[2018-11-30] MEDS: Cyclobenzaprine 10 MG TAB PO PRN (12:10)
--- NOTE | 2018-11-30 12:39 | PRG ---
DATE OF SERVICE: 11/30/2018 SUBJECTIVE: This morning, she is having difficulty breathing, coughing, or wheezing. OBJECTIVE: VITAL SIGNS: Temperature 98, pulse 75, blood pressure 147/80, respirations 20, saturations on 3 L. CHEST: Bilateral wheezing. CARDIAC: Normal S1 and S2. No gallops. ABDOMEN: No masses. IMPRESSION: Chronic obstructive pulmonary disease, bronchial asthma exacerbation. PLAN: Continue neb treatments, antibiotics, steroids. I will add Dulera to her present treatment. Job ID: [id number]
[2018-11-30] MEDS: Mometasone/Formoterol 120 PUFF INHALER INH SCH (19:19)
--- NOTE | 2018-11-30 19:51 | EKG ---
Test Reason : Blood Pressure : / mmHG Vent. Rate : 138 BPM Atrial Rate : 138 BPM P-R Int : 130 ms QRS Dur : 068 ms QT Int : 350 ms P-R-T Axes : 035 058 063 degrees QTc Int : 530 ms Sinus tachycardia Nonspecific ST and T wave abnormality Abnormal ECG Confirmed by AISHA FU DO [id number]), editorial manager CARLITO SMALL ([id number] on 11/30/2018 7:50:51 PM Referred By: Confirmed By:AISHA FU DO
[2018-11-30] MEDS: Atorvastatin Calcium 20 MG TAB PO SCH (20:04)
[2018-12-01] MEDS: methylPREDNISolone Sod Succ 40 MG VIAL IVP SCH ×2 (01:15→08:43)
[2018-12-01] MEDS: Mometasone/Formoterol 120 PUFF INHALER INH SCH ×2 (06:16→19:16)
[2018-12-01] MEDS: Famotidine 20 MG TAB PO SCH ×2 (08:35→20:26)
[2018-12-01] MEDS: guaiFENesin ER 600 MG TAB PO SCH ×2 (08:35→20:26)
[2018-12-01] MEDS: Doxycycline 100 MG CAP PO SCH ×2 (08:35→20:26)
[2018-12-01] MEDS: Acetaminophen 325 MG TAB PO SCH ×3 (08:35→20:25)
[2018-12-01] MEDS: Cefdinir 300 MG CAP PO SCH ×2 (08:36→20:26)
[2018-12-01] MEDS: Furosemide 40 MG TAB PO SCH (08:36)
[2018-12-01] MEDS: Metoprolol Tartrate 25 MG TAB PO SCH ×2 (08:36→20:25)
[2018-12-01] MEDS: Potassium Chloride 20 MEQ TAB PO SCH (08:36)
[2018-12-01] MEDS: Saccharomyces boulardii 250 MG CAP PO SCH (08:36)
[2018-12-01] MEDS: Lisinopril 10 MG TAB PO SCH (08:36)
[2018-12-01] MEDS: Enoxaparin Sodium 40 MG/0.4 ML SYRINGE SC SCH (08:37)
[2018-12-01] MEDS: Senokot S 8.6-50 MG TAB PO PRN (08:42)
[2018-12-01] MEDS: Cyclobenzaprine 10 MG TAB PO PRN ×2 (08:42→20:26)
--- NOTE | 2018-12-01 11:46 | PRG ---
DATE OF SERVICE: 12/01/2018 SUBJECTIVE: This morning, she is slightly better, still coughing and wheezing. OBJECTIVE: VITAL SIGNS: Saturations are 95% on 2 L, respiratory rate 18, pulse 72, temperature 98, blood pressure 131/68. CHEST: Decreased breath sounds. No wheezing. CARDIAC: Normal S1 and S2. ABDOMEN: No masses. IMPRESSION: Chronic obstructive pulmonary disease exacerbation, bronchitis. PLAN: Continue present treatment. Hopefully, she will be discharged home in the next day or 2. Job ID: [id number]
[2018-12-01] MEDS: predniSONE 20 MG TAB PO SCH (16:05)
[2018-12-01] MEDS: Benzonatate 100 MG CAP PO PRN ×2 (16:07→22:48)
--- NOTE | 2018-12-01 20:16 | PDOC.PN ---
- Subjective Encounter Start Date: 12/01/18 Encounter Start Time: 10:50 Patient seen and examined for COPD flare. Cough +. No new complaints. No overnight events - Objective Resuscitation Status - Order Detail: 11/26/18 17:55 Resuscitation Status Routine Resuscitation Status: FULL: Full Resuscitation Discussed with: Patient JULIA Reviewed: Yes Vital Signs & Weight: Vital Signs (12 hours) Temp Pulse Resp BP BP Pulse Ox 12/01/18 19:16 77 16 95 12/01/18 19:15 77 16 96 12/01/18 16:07 97.9 F 77 20 132/72 95 12/01/18 14:50 66 18 95 12/01/18 12:30 97.9 F 66 20 126/67 96 12/01/18 11:10 72 18 95 12/01/18 08:49 96 12/01/18 08:36 131/68 Weight Weight 140 lb Most Recent Monitor Data Heart Rate from ECG 82 NIBP 123/68 NIBP BP-Mean 86 Respiration from ECG 28 SpO2 99 I&O: 11/30/18 12/01/18 12/02/18 06:59 06:59 06:59 Intake Total 950 1230 960 Output Total 300 600 800 Balance 650 630 160 Result Diagrams: 11/29/18 05:06 11/29/18 05:06 Phys Exam - Physical Examination Constitutional: NAD Respiratory: no rales, wheezing present Scat rhonchi Cardiovascular: RRR, no rub Gastrointestinal: soft, positive bowel sounds Musculoskeletal: no edema Dx/Plan (1) Acute and chronic respiratory failure with hypoxia Code(s): J96.21 - ACUTE AND CHRONIC RESPIRATORY FAILURE WITH HYPOXIA Status: Acute Comment: due to COPD Exacerbation (2) Tobacco dependence Code(s): F17.200 - NICOTINE DEPENDENCE, UNSPECIFIED, UNCOMPLICATED Status: Chronic (3) HTN (hypertension) Code(s): I10 - ESSENTIAL (PRIMARY) HYPERTENSION Status: Chronic (4) HLD (hyperlipidemia) Code(s): E78.5 - HYPERLIPIDEMIA, UNSPECIFIED Status: Chronic (5) Elevated troponin Code(s): R74.8 - ABNORMAL LEVELS OF OTHER SERUM ENZYMES Status: Chronic (6) CKD (chronic kidney disease) stage 2, GFR 60-89 ml/min Code(s): N18.2 - CHRONIC KIDNEY DISEASE, STAGE 2 (MILD) Status: Chronic - Plan cont current plan of care, continue antibiotics, out of bed/ambulate, DVT proph w/SCDs Steroids changed to PO -: Cont Nebs -: Cont other meds as below Review of Systems - Review of Systems Cardiovascular: negative: chest pain, palpitations, orthopnea, paroxysmal nocturnal dyspnea, edema, light headedness, other Gastrointestinal: negative: Nausea, Vomiting, Abdominal Pain, Diarrhea, Constipation, Melena, Hematochezia, Other - Medications/Allergies Allergies/Adverse Reactions: Allergies Allergy/AdvReac Type Severity Reaction Status Date / Time levofloxacin [From Levaquin] AdvReac Unknown Verified 11/29/18 15:03 Medications: Current Medications Acetaminophen (Tylenol) 650 mg [place] Q4H PRN PRN Reason: Headache/Fever/Mild Pain (1-3) Last Admin: 11/30/18 04:34 Dose: 650 mg Acetaminophen (Tylenol) 650 mg PO TID [facility] Last Admin: 12/01/18 16:00 Dose: 650 mg Albuterol/Ipratropium (Duoneb) 3 ml NEB [id number] [facility] Last Admin: 12/01/18 19:15 Dose: 3 ml Atorvastatin Calcium (Lipitor) 20 mg PO HS [facility] Last Admin: 11/30/18 20:04 Dose: 20 mg Benzonatate (Tessalon) 100 mg PO TID PRN PRN Reason: Cough Last Admin: 12/01/18 16:07 Dose: 100 mg Cefdinir (Omnicef) 300 mg PO BID [facility] Last Admin: 12/01/18 08:36 Dose: 300 mg Clonidine (Catapres) 0.1 mg PO Q4H PRN PRN Reason: Severe Hypertension Cyclobenzaprine HCl (Flexeril) 5 mg PO TID PRN PRN Reason: Muscle Spasm Stop: 12/02/18 11:31 Last Admin: 12/01/18 08:42 Dose: 5 mg Doxycycline Hyclate (Vibramycin) 100 mg PO BID [facility] Last Admin: 12/01/18 08:35 Dose: 100 mg Famotidine (Pepcid) 20 mg PO BID [facility] Last Admin: 12/01/18 08:35 Dose: 20 mg Furosemide (Lasix) 40 mg PO QAM [facility] Last Admin: 12/01/18 08:36 Dose: 40 mg Guaifenesin (Mucinex) 600 mg PO Q12HR [facility] Last Admin: 12/01/18 08:35 Dose: 600 mg Hydralazine HCl (Apresoline) 10 mg SLOW IVP Q4H PRN PRN Reason: Severe Hypertension Isosorbide Mononitrate (Imdur Er) 30 mg PO DAILY [facility] Last Admin: 12/01/18 08:36 Dose: 30 mg Lisinopril (Zestril) 10 mg PO DAILY [facility] Last Admin: 12/01/18 08:36 Dose: 10 mg Lorazepam (Ativan) 1 mg SLOW IVP Q4H PRN PRN Reason: Anxiety/Agitation Metoprolol Tartrate (Lopressor) 25 mg PO BID [facility] Last Admin: 12/01/18 08:36 Dose: 25 mg Mometasone Furoate/Formoterol Fumar (Dulera 200 Mcg/5 Mcg Inhaler) 2 puff INH BID-RT [facility] Last Admin: 12/01/18 19:16 Dose: 2 puff Ondansetron HCl (Zofran Odt) 4 mg PO Q6H PRN PRN Reason: Nausea/Vomiting Ondansetron HCl (Zofran) 4 mg IVP Q6H PRN PRN Reason: Nausea/Vomiting Potassium Chloride (K-Dur) 20 meq PO DAILY [facility] Last Admin: 12/01/18 08:36 Dose: 20 meq Prednisone (Prednisone) 20 mg PO BID-WM [facility] Last Admin: 12/01/18 16:05 Dose: 20 mg Saccharomyces Boulardii (Florastor) 250 mg PO DAILY [facility] Last Admin: 12/01/18 08:36 Dose: 250 mg Senna/Docusate Sodium (Senokot S) 2 tab PO BID PRN PRN Reason: Constipation Last Admin: 12/01/18 08:42 Dose: 2 tab Sodium Chloride (Flush - Normal Saline) 10 ml IVF Q12HR [facility] Last Admin: 12/01/18 08:37 Dose: 10 ml Sodium Chloride (Flush - Normal Saline) 10 ml IVF PRN PRN PRN Reason: Saline Flush Last Admin: 11/30/18 15:16 Dose: 10 ml Sterile Water (Bacteriostatic Water) 2 ml FS PRN PRN PRN Reason: RECONSTITUTION Last Admin: 11/30/18 20:13 Dose: 2 ml
[2018-12-01] MEDS: Atorvastatin Calcium 20 MG TAB PO SCH (20:26)
[2018-12-02 05:56] LABS: #Lymphocytes 1.6 thou/uL (1.20-3.40); #Monocytes 0.8 thou/uL (0.11-0.59); #Neutrophils 7.7 thou/uL (1.40-6.50); %Basophils 0.2 % (0.0-1.0); %Eosinophils 0.4 % (0.0-10.0); %Lymphocytes 15.8 % (21.0-51.0); %Monocytes 8.1 % (0.0-10.0); %Neutrophils 75.6 % (42.0-75.0); Hemoglobin 13.9 g/dL (12.0-16.0); Mean Corpuscular HGB CONC 32.3 g/dL (32.0-36.0); Mean Corpuscular Hemoglobin 31.5 pg (27.0-31.0); Mean Corpuscular Volume 97.6 fL (78.0-98.0); Mean Platelet Volume 6.5 fL (7.4-10.4); Platelet Count 347 thou/uL (130-400); RBC Distribution Width 12.6 % (11.5-14.5); Red Blood Cell (RBC) Count 4.42 mill/uL (4.20-5.40); White Blood Cell (WBC) Count 10.2 thou/uL (4.8-10.8)
[2018-12-02 06:30] LABS: Anion Gap 10 mmol/L (10-20); BUN (Urea Nitrogen) 22 mg/dL (9.8-20.1); Calc. Creatinine Clearance 52 mL/min (70-130); Calcium 8.5 mg/dL (7.8-10.44); Carbon Dioxide 26 mmol/L (23-31); Chloride 107 mmol/L (98-107); Estimated GFR-MDRD 55; Glucose 80 mg/dL (83-110); Magnesium 2.2 mg/dL (1.6-2.6); Potassium 4.3 mmol/L (3.5-5.1); Sodium 139 mmol/L (136-145)
[2018-12-02] MEDS: Mometasone/Formoterol 120 PUFF INHALER INH SCH (06:36)
[2018-12-02] MEDS: predniSONE 20 MG TAB PO SCH (08:08)
[2018-12-02] MEDS: Furosemide 40 MG TAB PO SCH (08:08)
[2018-12-02] MEDS: Lisinopril 10 MG TAB PO SCH (08:08)
[2018-12-02] MEDS: Saccharomyces boulardii 250 MG CAP PO SCH (08:08)
[2018-12-02] MEDS: Metoprolol Tartrate 25 MG TAB PO SCH (08:08)
[2018-12-02] MEDS: Doxycycline 100 MG CAP PO SCH (08:08)
[2018-12-02] MEDS: Famotidine 20 MG TAB PO SCH (08:08)
[2018-12-02] MEDS: Potassium Chloride 20 MEQ TAB PO SCH (08:08)
[2018-12-02] MEDS: guaiFENesin ER 600 MG TAB PO SCH (08:08)
[2018-12-02] MEDS: Acetaminophen 325 MG TAB PO SCH (08:08)
[2018-12-02] MEDS: Cefdinir 300 MG CAP PO SCH (08:08)
[2018-12-02] MEDS: Benzonatate 100 MG CAP PO PRN (08:18)
--- NOTE | 2018-12-02 08:57 | PRG ---
DATE OF SERVICE: 12/02/2018 SUBJECTIVE: Ms. Ramos is doing well. She has no complaints. OBJECTIVE: VITAL SIGNS: Temperature is 98.0, pulse 71, blood pressure 121/71, saturations 96% on 2 L. HEENT: Unremarkable. NECK: No adenopathy. No JVD. LUNGS: Very soft expiratory wheeze. CARDIAC: S1 and S2, regular. ABDOMEN: Soft. EXTREMITIES: No edema. LABORATORY DATA: CBC is essentially normal. Chemistry is normal except for a BUN of 22. ASSESSMENT: Chronic obstructive pulmonary disease with exacerbation. PLAN: She is clinically stable to go home. She is on home O2 at 2 L nasal cannula and she stay on that. She should complete 7 to 10 days of oral antibiotics and taper her steroids over a week or two. Job ID: [id number]
[2018-12-02 13:38] VITALS: BP 105/66; TEMP 97.9
--- NOTE | 2018-12-03 13:24 | DIS ---
DATE OF ADMISSION: 11/26/2018 DATE OF DISCHARGE: 12/02/2018 DISCHARGE DISPOSITION: Home. FOLLOWUP: 1. Follow up with primary care physician, Dr. Galdamez, in 1 week. 2. Follow up with Dr. Garcia in 2 weeks. ALLERGIES: THE PATIENT IS UNABLE TO TOLERATE LEVAQUIN. THE PATIENT WAS SEEN AND EXAMINED ON THE DAY OF DISCHARGE. DENIES ANY NEW COMPLAINTS. SHORTNESS OF BREATH HAS SIGNIFICANTLY IMPROVED. DISCHARGE MEDICATIONS: 1. Omnicef 300 mg b.i.d. for 5 days. 2. Doxycycline 100 mg b.i.d. for 5 days. 3. Prednisone taper. All other home medications were left unchanged. BRIEF HOSPITAL COURSE: The patient is a 73-year-old female with COPD and chronic respiratory failure, on home oxygen, presented to the emergency room with worsening shortness of breath. She was started on noninvasive positive pressure ventilation. She was monitored in the intermediate care unit. She was placed on IV steroids with antibiotics. She developed tachycardia along with palpitations after Levaquin. For this reason, Levaquin was added to her allergy list. She will be discharged home with Omnicef, doxycycline and prednisone taper. She has been cleared by Dr. Garcia for discharge. FINAL DIAGNOSES: 1. Acute on chronic hypoxic respiratory failure, secondary to chronic obstructive pulmonary disease exacerbation. 2. Tobacco dependence. The patient was counseled. 3. Hypertension. 4. Hyperlipidemia. 5. Elevated troponin, secondary to demand ischemia. 6. Chronic kidney disease, stage 2. 7. Chronic diastolic heart failure, compensated. PLAN: Plan was discussed with the patient in detail. She stated understanding. Job ID: [id number]
== END 2018-12-02 14:02 | disposition home or self-care (01) | DRG 189 ==
LOC: ERS 14:56 → IMCU/EMU 19:07 → T4-B 11-28 18:46
PROVIDERS: ADMIT Emergency Medicine; ATTEND Emergency Medicine
PROC: 5A09357 Assistance with Respiratory Ventilation, Less than 24 Consecutive Hours, Continuous Positive Airway Pressure (ICD-10-PCS; principal; 2018-11-26)
DX: J96.21 Acute and chronic respiratory failure with hypoxia (principal); I50.32 Chronic diastolic (congestive) heart failure; E87.1 Hypo-osmolality and hyponatremia; J44.1 Chronic obstructive pulmonary disease with (acute) exacerbation; I13.0 Hypertensive heart and chronic kidney disease with heart failure and stage 1 through stage 4 chronic kidney disease, or unspecified chronic kidney disease; I24.8 Other forms of acute ischemic heart disease; J96.22 Acute and chronic respiratory failure with hypercapnia; Z99.81 Dependence on supplemental oxygen; R00.0 Tachycardia, unspecified; F41.9 Anxiety disorder, unspecified; E78.5 Hyperlipidemia, unspecified; G89.29 Other chronic pain; M54.9 Dorsalgia, unspecified; F17.210 Nicotine dependence, cigarettes, uncomplicated; N18.2 Chronic kidney disease, stage 2 (mild); T36.8X5A Adverse effect of other systemic antibiotics, initial encounter; Y92.239 Unspecified place in hospital as the place of occurrence of the external cause; Z90.49 Acquired absence of other specified parts of digestive tract
CPT/HCPCS: 36415; 71045; 71275; 80048; 80053; 81003; 83605; 83735; 84484; 85025; 87040; 87086; 87804; 93005; 94640; 94760; 96365; 96367; 96375; J0696; J1650; J1956; J2060; J2920; J2930; J3475; J7611; J7620; Q9966

== ENCOUNTER 2019-05-12 09:33 | Outpatient (CLI) | payer MEDICARE ==
--- NOTE | 2019-05-19 15:29 | MMO ---
Bilateral MAMMO Bilat Screen [facility]. CLINICAL HISTORY: Patient is 73 years old and is seen for screening. The patient has the following family history of breast cancer: maternal aunt. The patient has no personal history of cancer. VIEWS: The views performed were: bilateral craniocaudal with tomosynthesis and bilateral mediolateral oblique with tomosynthesis. FILMS COMPARED: The present examination has been compared to prior imaging studies performed at [facility] on 11/13/2014, and at [facility] on 04/12/2011 and 04/27/2011. MAMMOGRAM FINDINGS: There are scattered fibroglandular densities. Benign calcifications are noted bilaterally. There are no suspicious masses, suspicious calcifications, or new areas of architectural distortion. IMPRESSION: THERE IS NO MAMMOGRAPHIC EVIDENCE OF MALIGNANCY. A ROUTINE FOLLOW-UP MAMMOGRAM IN 1 YEAR IS RECOMMENDED. THE RESULTS OF THIS EXAM WERE SENT TO THE PATIENT. ACR BI-RADS Category 2 - Benign finding MAMMOGRAPHY NOTE: 1. A negative mammogram report should not delay a biopsy if a dominant of clinically suspicious mass is present. 2. Approximately 10% to 15% of breast cancers are not detected by mammography. 3. Adenosis and dense breasts may obscure an underlying neoplasm. Reported by: Joseph COVARRUBIAS Electonically Signed: [id number]
== END 2019-05-12 09:34 | disposition home or self-care (01) ==
LOC: BICMAMMO 09:33
PROVIDERS: ATTEND Family Medicine
DX: Z12.31 Encounter for screening mammogram for malignant neoplasm of breast (principal); Z80.3 Family history of malignant neoplasm of breast
CPT/HCPCS: 77063; 77067

== ENCOUNTER 2023-09-28 09:36 | Inpatient (IN) | payer MEDICARE ==
[2023-09-28 10:30] LABS: #Basophils 0.1 thou/uL (0.0-0.2); #Eosinphils 0.2 thou/uL (0.0-0.7); #Monocytes 1.5 thou/uL (0.11-0.59); #Neutrophils 12.5 thou/uL (1.40-6.50); %Basophils 0.6 % (0.0-1.0); %Lymphocytes 13.7 % (21.0-51.0); %Monocytes 8.7 % (0.0-10.0); %Neutrophils 74.2 % (42.0-75.0); Hematocrit 42.1 % (36.0-47.0); Hemoglobin 13.9 g/dL (12.0-16.0); Mean Corpuscular Hemoglobin 35.5 pg (27.0-31.0); Mean Corpuscular Volume 107.4 fl (78.0-98.0); Mean Platelet Volume 8.9 fL (7.4-10.4); Platelet Count 360 10x3/uL (130-400); Red Blood Cell (RBC) Count 3.92 mill/uL (4.20-5.40); White Blood Cell (WBC) Count 16.9 10x3/uL (4.8-10.8)
[2023-09-28 10:49] LABS: ALT (SGPT) 8 U/L (8-55); AST (SGOT) 11 U/L (5-34); Albumin 4.3 g/dL (3.4-4.8); Alkaline Phosphatase 76 U/L (40-110); Anion Gap 16 mmol/L (10-20); BUN (Urea Nitrogen) 13 mg/dL (9.8-20.1); Bilirubin, Total 0.2 mg/dL (0.2-1.2); Calc. Creatinine Clearance 0 mL/min (70-130); Calcium 9.3 mg/dL (7.8-10.44); Carbon Dioxide 28 mmol/L (23-31); Chloride 102 mmol/L (98-107); Estimated GFR 42; Globulin 3.3 g/dL (2.4-3.5); Glucose 110 mg/dL (83-110); Potassium 3.8 mmol/L (3.5-5.1); Protein, Total 7.6 g/dL (5.8-8.1); Sodium 142 mmol/L (136-145)
[2023-09-28 10:59] LABS: Troponin I Less than 0.010 ng/mL (< 0.028)
[2023-09-28] MEDS ORDERED: Furosemide 40 MG/4 ML VIAL ONE (13:53)
[2023-09-28] MEDS ORDERED: Nitroglycerin 2% Ointment 1 INCH/1 GM Packet ONE (13:53)
[2023-09-28] MEDS ORDERED: Ipratropium/Albuterol 3 ML NEB NEB PRN (14:21)
[2023-09-28] MEDS ORDERED: Acetaminophen 325 MG TAB PO PRN (14:21)
[2023-09-28] MEDS ORDERED: Ondansetron ODT 4 MG TAB PO PRN (14:21)
[2023-09-28] MEDS ORDERED: Doxycycline 100 MG CAP PO SCH (15:15)
[2023-09-28 15:16] LABS: Base Excess 5.5 mEq/L (-2.0 to +3.0); Calcium, Ionized (venous) 1.01 mmol/L (1.16-1.32); Chloride (VBG) 98 mmol/L (98-106); Hematocrit-VBG 45 % (36.0-47.0); Hemoglobin (Hb) 15.2 g/dL (11.7-16.1); Potassium (VBG) 3.86 mmol/L (3.70-5.30); Sodium 143 mmol/L (133-146); pH (venous) 7.428 (7.32-7.43)
[2023-09-28 15:37] VITALS: BMI 27.1
[2023-09-28 16:04] LABS: Magnesium 2.3 mg/dL (1.6-2.6)
[2023-09-28 16:09] LABS: Troponin I Less than 0.010 ng/mL (< 0.028)
[2023-09-28] MEDS: methylPREDNISolone Sod Succ 40 MG VIAL IVP SCH ×2 (17:32→23:40)
[2023-09-28] MEDS: cefTRIAXone\\ROCEPHIN 1 GM in Sodium Chloride 0.9% 100 ML IVPB SCH (17:32)
[2023-09-28] MEDS: ALPRAZolam 0.25 MG TAB PO PRN (17:32)
[2023-09-28 18:47] LABS: Troponin I Less than 0.010 ng/mL (< 0.028)
[2023-09-28] MEDS: Ipratropium/Albuterol 3 ML NEB NEB SCH ×2 (19:01→22:43)
[2023-09-28] MEDS: Mometasone 200 MCG/Formoterol 5 MCG 120 PUFF INHALER INH SCH (19:02)
[2023-09-28] MEDS: Oxybutynin 5 MG TAB PO SCH (21:39)
[2023-09-28] MEDS: guaiFENesin ER 600 MG TAB PO SCH (21:39)
[2023-09-28] MEDS: Atorvastatin Calcium 10 MG TAB PO SCH (21:40)
[2023-09-28] MEDS: Metoprolol Tartrate 25 MG TAB PO SCH (21:40)
[2023-09-28] MEDS: HYDROcodone/Acetaminophen 7.5/325 mg Tablet PO PRN (23:55)
[2023-09-29] MEDS: Ipratropium/Albuterol 3 ML NEB NEB SCH ×6 (02:11→22:05)
[2023-09-29] MEDS: HYDROcodone/Acetaminophen 7.5/325 mg Tablet PO PRN ×4 (04:32→20:07)
[2023-09-29] MEDS: Doxycycline 100 MG CAP PO SCH ×2 (04:33→15:05)
[2023-09-29 04:59] LABS: #Monocytes 0.2 thou/uL (0.11-0.59); #Neutrophils 14.8 thou/uL (1.40-6.50); %Basophils 0.1 % (0.0-1.0); %Lymphocytes 4.5 % (21.0-51.0); %Neutrophils 93.5 % (42.0-75.0); Hematocrit 39.8 % (36.0-47.0); Mean Corpuscular HGB CONC 32.7 g/dL (32.0-36.0); Mean Corpuscular Hemoglobin 35.2 pg (27.0-31.0); Mean Corpuscular Volume 107.9 fl (78.0-98.0); Platelet Count 361 10x3/uL (130-400); Red Blood Cell (RBC) Count 3.69 mill/uL (4.20-5.40); White Blood Cell (WBC) Count 15.8 10x3/uL (4.8-10.8)
[2023-09-29 05:33] LABS: Anion Gap 15 mmol/L (10-20); BUN (Urea Nitrogen) 17 mg/dL (9.8-20.1); Calc. Creatinine Clearance 40 mL/min (70-130); Calcium 8.8 mg/dL (7.8-10.44); Carbon Dioxide 30 mmol/L (23-31); Chloride 95 mmol/L (98-107); Estimated GFR 46; Glucose 165 mg/dL (83-110); Potassium 4.4 mmol/L (3.5-5.1); Sodium 136 mmol/L (136-145)
[2023-09-29] MEDS: methylPREDNISolone Sod Succ 40 MG VIAL IVP SCH ×3 (05:43→22:01)
[2023-09-29] MEDS: Mometasone 200 MCG/Formoterol 5 MCG 120 PUFF INHALER INH SCH ×2 (06:58→18:54)
[2023-09-29] MEDS: Metoprolol Tartrate 25 MG TAB PO SCH ×2 (08:45→20:06)
[2023-09-29] MEDS: Oxybutynin 5 MG TAB PO SCH ×2 (08:45→20:07)
[2023-09-29] MEDS: guaiFENesin ER 600 MG TAB PO SCH ×2 (08:45→20:06)
[2023-09-29] MEDS: Aspirin 81 mg Enteric Coated Tablet PO SCH (08:45)
[2023-09-29] MEDS: cefTRIAXone\\ROCEPHIN 1 GM in Sodium Chloride 0.9% 100 ML IVPB SCH (14:22)
[2023-09-29] MEDS: Atorvastatin Calcium 10 MG TAB PO SCH (20:06)
[2023-09-30] MEDS: HYDROcodone/Acetaminophen 7.5/325 mg Tablet PO PRN ×6 (00:03→23:51)
[2023-09-30] MEDS: Ipratropium/Albuterol 3 ML NEB NEB SCH ×6 (02:24→21:54)
[2023-09-30] MEDS: Doxycycline 100 MG CAP PO SCH ×2 (04:12→17:11)
[2023-09-30] MEDS: methylPREDNISolone Sod Succ 40 MG VIAL IVP SCH ×3 (05:41→22:38)
[2023-09-30] MEDS: Mometasone 200 MCG/Formoterol 5 MCG 120 PUFF INHALER INH SCH (06:57)
[2023-09-30] MEDS: Aspirin 81 mg Enteric Coated Tablet PO SCH (09:03)
[2023-09-30] MEDS: Metoprolol Tartrate 25 MG TAB PO SCH ×2 (09:04→20:05)
[2023-09-30] MEDS: Oxybutynin 5 MG TAB PO SCH ×2 (09:06→20:05)
[2023-09-30] MEDS: guaiFENesin ER 600 MG TAB PO SCH ×2 (09:06→20:05)
[2023-09-30] MEDS: ALPRAZolam 0.25 MG TAB PO PRN (14:04)
[2023-09-30] MEDS: cefTRIAXone\\ROCEPHIN 1 GM in Sodium Chloride 0.9% 100 ML IVPB SCH (17:10)
[2023-09-30] MEDS: Budesonide 0.5 MG/2 ML NEB INH SCH (19:12)
[2023-09-30] MEDS: Atorvastatin Calcium 10 MG TAB PO SCH (20:05)
[2023-10-01] MEDS: Ipratropium/Albuterol 3 ML NEB NEB SCH ×6 (02:13→22:05)
[2023-10-01] MEDS: HYDROcodone/Acetaminophen 7.5/325 mg Tablet PO PRN ×4 (03:53→21:11)
[2023-10-01] MEDS: Doxycycline 100 MG CAP PO SCH ×2 (03:53→16:20)
[2023-10-01 04:25] LABS: #Monocytes 0.7 thou/uL (0.11-0.59); #Neutrophils 15.4 thou/uL (1.40-6.50); %Basophils 0.1 % (0.0-1.0); %Lymphocytes 3.3 % (21.0-51.0); %Monocytes 4.3 % (0.0-10.0); %Neutrophils 91.2 % (42.0-75.0); Hematocrit 36.7 % (36.0-47.0); Hemoglobin 12.1 g/dL (12.0-16.0); Mean Corpuscular Hemoglobin 35.5 pg (27.0-31.0); Mean Corpuscular Volume 107.6 fl (78.0-98.0); Mean Platelet Volume 8.9 fL (7.4-10.4); Platelet Count 345 10x3/uL (130-400); RBC Distribution Width 13.8 % (11.5-14.5); Red Blood Cell (RBC) Count 3.41 mill/uL (4.20-5.40); White Blood Cell (WBC) Count 16.9 10x3/uL (4.8-10.8)
[2023-10-01 04:57] LABS: Anion Gap 13 mmol/L (10-20); BUN (Urea Nitrogen) 32 mg/dL (9.8-20.1); Calc. Creatinine Clearance 43 mL/min (70-130); Carbon Dioxide 27 mmol/L (23-31); Chloride 100 mmol/L (98-107); Estimated GFR 46; Glucose 180 mg/dL (83-110); Potassium 4.5 mmol/L (3.5-5.1); Sodium 135 mmol/L (136-145)
[2023-10-01] MEDS: methylPREDNISolone Sod Succ 40 MG VIAL IVP SCH ×2 (05:33→21:08)
[2023-10-01] MEDS: Budesonide 0.5 MG/2 ML NEB INH SCH ×2 (07:39→18:24)
[2023-10-01] MEDS: Oxybutynin 5 MG TAB PO SCH ×2 (08:48→21:08)
[2023-10-01] MEDS: guaiFENesin ER 600 MG TAB PO SCH ×2 (08:48→21:07)
[2023-10-01] MEDS: Metoprolol Tartrate 25 MG TAB PO SCH ×2 (08:48→21:07)
[2023-10-01] MEDS: Aspirin 81 mg Enteric Coated Tablet PO SCH (08:48)
[2023-10-01] MEDS: ALPRAZolam 0.25 MG TAB PO PRN (08:50)
[2023-10-01] MEDS ORDERED: ALPRAZolam 0.25 MG TAB PO PRN (12:31)
[2023-10-01] MEDS: cefTRIAXone\\ROCEPHIN 1 GM in Sodium Chloride 0.9% 100 ML IVPB SCH (16:21)
[2023-10-01] MEDS ORDERED: methylPREDNISolone Sod Succ 40 MG VIAL IVP SCH (21:00)
[2023-10-01] MEDS: Atorvastatin Calcium 10 MG TAB PO SCH (21:07)
[2023-10-02] MEDS: HYDROcodone/Acetaminophen 7.5/325 mg Tablet PO PRN ×3 (01:15→09:46)
[2023-10-02] MEDS: Ipratropium/Albuterol 3 ML NEB NEB SCH ×3 (02:01→11:03)
[2023-10-02] MEDS: Doxycycline 100 MG CAP PO SCH (04:34)
[2023-10-02 05:12] LABS: Anion Gap 12 mmol/L (10-20); BUN (Urea Nitrogen) 32 mg/dL (9.8-20.1); Calc. Creatinine Clearance 42 mL/min (70-130); Calcium 8.9 mg/dL (7.8-10.44); Carbon Dioxide 28 mmol/L (23-31); Chloride 102 mmol/L (98-107); Estimated GFR 46; Glucose 163 mg/dL (83-110); Potassium 4.8 mmol/L (3.5-5.1); Sodium 137 mmol/L (136-145)
[2023-10-02] MEDS: Budesonide 0.5 MG/2 ML NEB INH SCH (07:43)
[2023-10-02] MEDS: Oxybutynin 5 MG TAB PO SCH (08:29)
[2023-10-02] MEDS: Aspirin 81 mg Enteric Coated Tablet PO SCH (08:29)
[2023-10-02] MEDS: methylPREDNISolone Sod Succ 40 MG VIAL IVP SCH (08:30)
[2023-10-02] MEDS: Metoprolol Tartrate 25 MG TAB PO SCH (08:30)
[2023-10-02] MEDS: guaiFENesin ER 600 MG TAB PO SCH (08:30)
[2023-10-02] MEDS ORDERED: Ipratropium/Albuterol 3 ML NEB NEB PRN (12:01)
[2023-10-02 12:26] VITALS: BP 115/68; TEMP 98
[2023-10-02] MEDS ORDERED: Ipratropium/Albuterol 3 ML NEB NEB SCH (12:30)
== END 2023-10-02 14:35 | disposition home or self-care (01) | DRG 189 ==
LOC: ERS 09:36 → SUATTDRO 09:36 → 2NO 15:24
PROVIDERS: ADMIT Internal Medicine; ATTEND Family Medicine
DX: J96.21 Acute and chronic respiratory failure with hypoxia (principal); J44.1 Chronic obstructive pulmonary disease with (acute) exacerbation; J98.11 Atelectasis; N17.9 Acute kidney failure, unspecified; I13.0 Hypertensive heart and chronic kidney disease with heart failure and stage 1 through stage 4 chronic kidney disease, or unspecified chronic kidney disease; E78.00 Pure hypercholesterolemia, unspecified; N18.2 Chronic kidney disease, stage 2 (mild); I50.9 Heart failure, unspecified; Z79.899 Other long term (current) drug therapy; Z79.82 Long term (current) use of aspirin; Z79.51 Long term (current) use of inhaled steroids; Z90.49 Acquired absence of other specified parts of digestive tract; Z90.710 Acquired absence of both cervix and uterus; Z98.890 Other specified postprocedural states; Z87.891 Personal history of nicotine dependence
CPT/HCPCS: 36415; 71045; 80048; 80053; 82805; 83735; 83880; 84145; 84484; 85025; 93005; 94640; 96374; J0696; J1650; J1940; J2920; J3490; J7620; J7626; Q0162

== ENCOUNTER 2025-06-29 23:46 | Emergency (ER) | payer MEDICARE ==
[2025-06-30] MEDS ORDERED: Ketorolac Tromethamine 30 MG (1 mL) VIAL ONE (01:10)
[2025-06-30] MEDS ORDERED: Amoxicillin/Potassium Clav 875 MG TAB ONE ×2 (01:10→01:15)
[2025-06-30 03:11] LABS: #Basophils 0.09 10x3/uL (0.0-0.2); #Eosinophils 0.22 10x3/uL (0.0-0.7); #Monocytes 2.20 10x3/uL (0.11-0.59); #Neutrophils 12.50 10x3/uL (1.40-6.50); %Basophils 0.6 % (0.0-1.0); %Eosinophils 1.3 % (0.0-10.0); %Lymphocytes 7.2 % (21.0-51.0); %Monocytes 13.4 % (0.0-10.0); %Neutrophils 76.5 % (42.0-75.0); Hematocrit 37.7 % (36.0-47.0); Hemoglobin 11.8 g/dL (12.0-16.0); Mean Corpuscular Hemoglobin 30.6 pg (27.0-31.0); Mean Corpuscular Volume 97.7 fL (78.0-98.0); Platelet Count 387 10x3/uL (130-400); Red Blood Cell (RBC) Count 3.86 mill/uL (4.20-5.40); White Blood Cell (WBC) Count 16.36 10x3/uL (4.8-10.8)
[2025-06-30 03:23] LABS: Actual Bicarbonate (HCO3v) 26.9 mEq/L (22-28); Base Excess -2.5 mEq/L (-2.0 to +3.0); Calcium, Ionized (venous) 1.13 mmol/L (1.16-1.32); Chloride (VBG) 102 mmol/L (98-106); Hematocrit-VBG 38 % (36.0-47.0); Hemoglobin (Hb) 13.0 g/dL (11.7-16.1); Potassium (VBG) 4.06 mmol/L (3.70-5.30); Sodium 138 mmol/L (133-146)
[2025-06-30 03:34] LABS: ALT (SGPT) 8 U/L (Less than 34); AST (SGOT) 15 U/L (11-34); Albumin 3.0 g/dL (3.1-4.5); Alkaline Phosphatase 101 U/L (40-110); Anion Gap 17 mmol/L (10-20); BUN (Urea Nitrogen) 16 mg/dL (9.8-20.1); Bilirubin, Total 0.2 mg/dL (0.3-1.2); Calc. Creatinine Clearance 0 mL/min (70-130); Calcium 8.7 mg/dL (7.8-10.44); Carbon Dioxide 23 mmol/L (23-31); Chloride 102 mmol/L (98-107); Globulin 3.6 g/dL (2.4-3.5); Glucose 146 mg/dL (83-110); Lipase 7 U/L (8-78); Magnesium 2.3 mg/dL (1.6-2.6); Potassium 4.1 mmol/L (3.5-5.1); Sodium 138 mmol/L (136-145)
[2025-06-30] MEDS ORDERED: Iopamidol-370 76% 500 ML MDV (1 ML CHARGE) ONE (14:41)
== END 2025-06-30 07:13 | disposition short-term general hospital (02) ==
LOC: ERS 23:46
DX: S72.112A Displaced fracture of greater trochanter of left femur, initial encounter for closed fracture (principal); J18.9 Pneumonia, unspecified organism; R09.02 Hypoxemia; J81.1 Chronic pulmonary edema; J44.9 Chronic obstructive pulmonary disease, unspecified; I10 Essential (primary) hypertension; W07.XXXA Fall from chair, initial encounter; Z87.891 Personal history of nicotine dependence
CPT/HCPCS: 71045; 71275; 72192; 73700; 80053; 82805; 83605; 83690; 83735; 83880; 84484; 85025; 93005; 94660; J1885; 36415; 96374